=== PATIENT | female | born 1950 | race Caucasian/White ===

== ENCOUNTER 2016-07-12 00:17 | Inpatient (IN) | payer OTHER ==
--- NOTE | ~2016-07-12 | HP ---
History And Physical [facility] [address] [place]. [address] NAME: BRIDGET NICHOLAS : 50 STATUS : ADM IN PAT#: [id number] AGE: 66 ADM/REG DATE : 07/12/16 MR#: [id number] REPORT SERV DATE: 07/12/16 DICTATED BY: MORALES SAWYER DATE: 07/12/16 REPORT STATUS : Draft TRANSCRIBED BY: MODL DATE: 07/12/16 DATE OF ADMISSION: 07/12/2016 ADMISSION DIAGNOSIS: Myocardial infarction. HISTORY OF PRESENT ILLNESS: Ms Nicholas is a 66-year-old female, who presented to [facility] ED early this morning via EMS with a presumptive diagnosis of inferior SD. She has a medical history notable for known coronary heart disease with prior CABG in the s, one vessel, followed by stenting of her RCA. She does not have regular followup with a maintenance worker municipal, but previously was cared for by Dr. Larios. She states that she was having back pain for the past three weeks intermittent that became more severe and prolonged today. She actually saw a primary care physician today and was referred to our group for an appointment in the near future, but due to progressive pain, she called EMS and an EKG in the field was consistent with evolving inferior SD. Code STEMI was activated and I discussed the case with the emergency room physician who reviewed the EKG and confirmed findings consistent with inferior wall SD. The patient was therefore brought to the lab coordinator emergently where I met her briefly and evaluated her. She was having ongoing severe 10/10 chest pain and we decided to proceed with cardiac catheterization. The details are dictated separately, but in short demonstrated an occluded proximal RCA that was successfully revascularized with a single stent. PAST MEDICAL HISTORY: 1. Coronary heart disease with prior one-vessel CABG, details unknown, but presumably with GILMORE to LAD and subsequent occlusion of this graft and previous stenting to her RCA, details are also not available. The patient was admitted in 2010 with acute SD, but did not undergo revascularization at that time. 2. Hypertension. 3. Tobacco abuse. Longstanding and ongoing. 4. Dyslipidemia. 5. Sleep apnea. SURGICAL HISTORY: Cholecystectomy and bypass surgery. MEDICATIONS: Home med list not currently available. ALLERGIES: DENIES. FAMILY HISTORY: Noncontributory. SOCIAL HISTORY: The patient is a . She lives with one of her daughters. She is not working. She smokes cigarettes, but denies alcohol or illicits. REVIEW OF SYSTEMS: Per HPI. Otherwise, negative. History And Physical [address] [address] NAME: BRIDGET NICHOLAS : 50 STATUS : ADM IN PAT#: [id number] AGE: 66 ADM/REG DATE : 07/12/16 MR#: [id number] REPORT SERV DATE: 07/12/16 DICTATED BY: MORALES SAWYER DATE: 07/12/16 REPORT STATUS : Draft TRANSCRIBED BY: JF DATE: 07/12/16 PHYSICAL EXAMINATION: Upon arrival to the lab coordinator. VITAL SIGNS: Heart rate approximately 80, blood pressure 140/90, respiratory rate 22. GENERAL: Normocephalic, well-developed male, in moderate distress. Speech is labored. HEENT: Sclerae anicteric. Mucous membranes are moist. NECK: Supple. CARDIOVASCULAR: Normal S1, S2. No murmurs are present. PULMONARY: Clear to auscultation bilaterally. ABDOMEN: Soft, nondistended, nontender. EXTREMITIES: Warm. No edema. LABORATORY DATA: Pending at the time of dictation. EKG demonstrates sinus bradycardia with ST elevations in inferior leads ranging from 6 [address] depression across precordial leads. There are also ST elevations laterally. Cardiac cath dictated separately and summarized in HPI. IMPRESSION/RECOMMENDATIONS: 1. Acute inferior ST-elevation myocardial infarction, status post prior percutaneous coronary intervention to the right coronary artery. 2. Left ventricular dysfunction, ejection fraction estimated at 40% by left ventriculogram. 3. Tobacco abuse. 4. History of hypertension. The patient be admitted to CCU. She will be started on aspirin and Brilinta as well as a high-intensity statin. We will treat her with an MANUELA inhibitor and beta yaz as her blood pressure tolerates. We will further evaluate her left ventricular function with an echocardiogram. We will address risk factor modification with focus on smoking cessation. LAURE/JF Morales Sawyer MD / [id number] CC: Morales Sawyer MD
--- NOTE | ~2016-07-12 | EHP ---
ER [address] and [address] [facility] [address] NAME: BRIDGET NORTH : 50 STATUS : DIS IN PAT#: [id number] AGE: 66 ADM/REG DATE : 07/12/16 MR#: [id number] REPORT SERV DATE: 07/19/16 DICTATED BY: FRANCY MYLES DATE: 07/19/16 REPORT STATUS : Draft TRANSCRIBED BY: MODL DATE: 07/19/16 ADDENDUM: CHIEF COMPLAINT: Chest pain. EKG read by me, showed an ST elevation IN inferiorly with reciprocal changes. DIAGNOSIS: ST elevation myocardial infarction. CONDITION: Fair. I did discuss this with Cardiology and reviewed the patient's labs, diagnosis. CMR/MODL Francy Myles M.D. / [id number] CC: MD Merlyn Hernandez DO
[~2016-07-12 00:17] MED LIST: ASAB PO; CHANTIX1 PO; NITROBID2 PO; NTG150 SL; ZANTAC 150 PO; ZIAC10 PO; ZOCOR40 PO
[2016-07-12] MEDS ORDERED: NORV5 PO (00:28)
[2016-07-12] MEDS ORDERED: [UNRECOGNIZED DRUG - REMARK] PO (00:29)
[2016-07-12] MEDS ORDERED: ZOCOR40 PO ×2 (00:35→05:44)
[2016-07-12] MEDS ORDERED: NITRO-TIME2.5 MG PO (00:36)
[2016-07-12] MEDS ORDERED: BEN25 PO (00:37)
[2016-07-12] MEDS ORDERED: [UNRECOGNIZED DRUG - REMARK] PO (00:37)
[2016-07-12] MEDS ORDERED: *UNABLE1 (00:38)
[2016-07-12 00:46] LABS: BASOPHILS 0.6 %; BASOPHILS ABSOLUTE 0.04 10/3/uL (0.0-0.16); EOSINOPHILS 3.2 %; EOSINOPHILS ABSOLUTE 0.22 10/3/uL (0.0-0.53); HEMOGLOBIN 14.6 g/dL (12.0-16.0); IMMATURE GRANULOCYTES 0.3 %; IMMATURE GRANULOCYTES ABSOLUTE 0.02 10/3/uL (0.0-0.11); LYMPHOCYTES ABSOLUTE 2.99 10/3/uL (0.67-4.30); MEAN CORPUS HGB CONC 35.8 g/dL (32.0-36.0); MEAN CORPUSCULAR HEMOGLOB 32.7 pg (26.0-34.0); MEAN CORPUSCULAR VOLUME 91.5 fL (80-100); MEAN PLATELET VOLUME 10.1 fL (9.2-13.0); MONOCYTES 4.3 %; MONOCYTES ABSOLUTE 0.29 10/3/uL (0.21-1.20); NEUTROPHILS 47.6 %; NEUTROPHILS ABSOLUTE 3.23 10/3/uL (2.02-8.40); PLATELET COUNT 250 10/3/uL (150-400); RBC DISTRIBUTION WIDTH 12.9 % (12.0-16.0); RED CELL COUNT 4.46 10/6/uL (4.0-5.6); WHITE BLOOD CELLS 6.8 10/3/uL (4.5-10.5)
[2016-07-12 00:47] LABS: HEMATOCRIT 40.8 % (36.0-48.0); MANUAL DIFF NO %
[2016-07-12 00:55] LABS: BUN (BLOOD UREA NITROGEN) 12 MG/DL (6-23); CALCIUM, SERUM 8.2 MG/DL (8.5-10.4); CHEST PAIN PROFILE TAT 0 Hrs 22 Mins; CHLORIDE, SERUM 108 MMOL/L (96-112); CO2 (CARBON DIOXIDE) 30 MMOL/L (24-34); CREATININE 0.94 MG/DL (0.55-1.02); GFR AFRICAN AMERICAN 73 ML/MIN (>=60); GFR NON AFRICAN AMERICAN 63 ML/MIN (>=60); GLUCOSE, SERUM 117 MG/DL (60-99); POTASSIUM, SERUM 3.1 MMOL/L (3.5-5.3); SODIUM, SERUM 144 MMOL/L (135-148); TROPONIN I 0.04 NG/ML (<0.05)
[2016-07-12 01:03] LABS: PARTIAL THROMBO TIME 25.7 SEC (22.5-37.2)
[2016-07-12 01:07] LABS: INTERNATIONAL NORMAL RATI 1.1 UNITS (-); PROTIME (NOT ORD) 13.8 SEC (12.0-14.5)
[2016-07-12 04:35] LABS: BASOPHILS 0.3 %; BASOPHILS ABSOLUTE 0.03 10/3/uL (0.0-0.16); EOSINOPHILS 0.6 %; EOSINOPHILS ABSOLUTE 0.05 10/3/uL (0.0-0.53); HEMATOCRIT 38.5 % (36.0-48.0); HEMOGLOBIN 13.7 g/dL (12.0-16.0); IMMATURE GRANULOCYTES 0.2 %; IMMATURE GRANULOCYTES ABSOLUTE 0.02 10/3/uL (0.0-0.11); LYMPHOCYTES ABSOLUTE 1.56 10/3/uL (0.67-4.30); MEAN CORPUS HGB CONC 35.6 g/dL (32.0-36.0); MEAN CORPUSCULAR HEMOGLOB 32.6 pg (26.0-34.0); MEAN CORPUSCULAR VOLUME 91.7 fL (80-100); MEAN PLATELET VOLUME 10.2 fL (9.2-13.0); MONOCYTES 6.1 %; MONOCYTES ABSOLUTE 0.53 10/3/uL (0.21-1.20); NEUTROPHILS 74.8 %; NEUTROPHILS ABSOLUTE 6.46 10/3/uL (2.02-8.40); PLATELET COUNT 211 10/3/uL (150-400); WHITE BLOOD CELLS 8.7 10/3/uL (4.5-10.5)
[2016-07-12 04:39] LABS: MANUAL DIFF NO %
[2016-07-12 04:48] LABS: BUN (BLOOD UREA NITROGEN) 10 MG/DL (6-23); CALCIUM, SERUM 8.3 MG/DL (8.5-10.4); CHLORIDE, SERUM 109 MMOL/L (96-112); CREATININE 0.84 MG/DL (0.55-1.02); GFR AFRICAN AMERICAN 84 ML/MIN (>=60); GFR NON AFRICAN AMERICAN 72 ML/MIN (>=60); GLUCOSE, SERUM 121 MG/DL (60-99); PHOSPHORUS, SERUM 2.7 MG/DL (2.5-4.5); POTASSIUM, SERUM 3.5 MMOL/L (3.5-5.3); SODIUM, SERUM 145 MMOL/L (135-148)
[2016-07-12 04:49] LABS: CO2 (CARBON DIOXIDE) 25 MMOL/L (24-34)
[2016-07-12] MEDS ORDERED: ZIAC10 PO (05:42)
[2016-07-12 11:03] LABS: CKMB INDEX (NOT ORD) 8.3
[2016-07-12 12:36] LABS: POTASSIUM, SERUM 3.9 MMOL/L (3.5-5.3)
[2016-07-12 19:20] LABS: CK-MB 102.5 NG/ML
[2016-07-12 19:21] LABS: CKMB INDEX (NOT ORD) 6.6
[2016-07-13 02:25] LABS: BASOPHILS 0.4 %; BASOPHILS ABSOLUTE 0.03 10/3/uL (0.0-0.16); EOSINOPHILS 1.9 %; EOSINOPHILS ABSOLUTE 0.14 10/3/uL (0.0-0.53); HEMATOCRIT 38.2 % (36.0-48.0); HEMOGLOBIN 13.3 g/dL (12.0-16.0); IMMATURE GRANULOCYTES 0.1 %; IMMATURE GRANULOCYTES ABSOLUTE 0.01 10/3/uL (0.0-0.11); LYMPHOCYTES 30.7 %; LYMPHOCYTES ABSOLUTE 2.21 10/3/uL (0.67-4.30); MANUAL DIFF NO %; MEAN CORPUS HGB CONC 34.8 g/dL (32.0-36.0); MEAN CORPUSCULAR HEMOGLOB 32.6 pg (26.0-34.0); MEAN CORPUSCULAR VOLUME 93.6 fL (80-100); MEAN PLATELET VOLUME 10.1 fL (9.2-13.0); MONOCYTES 6.7 %; MONOCYTES ABSOLUTE 0.48 10/3/uL (0.21-1.20); NEUTROPHILS 60.2 %; NEUTROPHILS ABSOLUTE 4.33 10/3/uL (2.02-8.40); PLATELET COUNT 185 10/3/uL (150-400); RBC DISTRIBUTION WIDTH 12.9 % (12.0-16.0); RED CELL COUNT 4.08 10/6/uL (4.0-5.6); WHITE BLOOD CELLS 7.2 10/3/uL (4.5-10.5)
[2016-07-13 02:47] LABS: BUN (BLOOD UREA NITROGEN) 10 MG/DL (6-23); CALCIUM, SERUM 8.5 MG/DL (8.5-10.4); CHLORIDE, SERUM 109 MMOL/L (96-112); CK-MB 50.2 NG/ML; CO2 (CARBON DIOXIDE) 25 MMOL/L (24-34); CREATININE 0.78 MG/DL (0.55-1.02); GFR AFRICAN AMERICAN 92 ML/MIN (>=60); GFR NON AFRICAN AMERICAN 79 ML/MIN (>=60); GLUCOSE, SERUM 100 MG/DL (60-99); POTASSIUM, SERUM 3.7 MMOL/L (3.5-5.3); SODIUM, SERUM 143 MMOL/L (135-148)
[2016-07-13 02:48] LABS: CKMB INDEX (NOT ORD) 5.1; CPK 991 U/L (0-200)
[2016-07-14] MEDS ORDERED: ASAB PO (11:05)
[2016-07-14] MEDS ORDERED: LIPITOR40 PO (11:05)
[2016-07-14] MEDS ORDERED: PRIN5 PO (11:06)
[2016-07-14] MEDS ORDERED: BRILINTA90 MG PO (11:06)
[2016-07-14] MEDS ORDERED: NITROSTAT0.4 MG SL (11:09)
== END 2016-07-14 13:39 | disposition home or self-care (01) | DRG 247 ==
LOC: ER 00:17 → SSU2 00:19 → CCU 01:56 → 2SO 07-13 12:28
PROVIDERS: Internal Medicine Cardiovascular Disease; Specialist
PROC: 027034Z Dilation of Coronary Artery, One Artery with Drug-eluting Intraluminal Device, Percutaneous Approach (ICD-10-PCS; principal; 2016-07-12)
PROC: 4A023N7 Measurement of Cardiac Sampling and Pressure, Left Heart, Percutaneous Approach (ICD-10-PCS; 2016-07-12)
PROC: B2151ZZ Fluoroscopy of Left Heart using Low Osmolar Contrast (ICD-10-PCS; 2016-07-12)
PROC: B2111ZZ Fluoroscopy of Multiple Coronary Arteries using Low Osmolar Contrast (ICD-10-PCS; 2016-07-12)
DX: I21.19 ST elevation (STEMI) myocardial infarction involving other coronary artery of inferior wall (principal); I10 Essential (primary) hypertension; F17.210 Nicotine dependence, cigarettes, uncomplicated; I25.10 Atherosclerotic heart disease of native coronary artery without angina pectoris; E78.5 Hyperlipidemia, unspecified; G47.33 Obstructive sleep apnea (adult) (pediatric); I34.0 Nonrheumatic mitral (valve) insufficiency; E78.00 Pure hypercholesterolemia, unspecified; Z95.1 Presence of aortocoronary bypass graft; Z98.890 Other specified postprocedural states
CPT/HCPCS: 80048; 82550; 82553; 83735; 84100; 84132; 84484; 85025; 85610; 85730; 87641; 93005; 93458; 99152; 99153; 99285; A9270-GY; C1713; C1725; C1760; C1769; C1874; C1887; C8929; C9606; J0583; J2250; J2405; J3010; Q9957; Q9967

== ENCOUNTER 2016-07-27 16:12 | Emergency (ER) | payer OTHER ==
[2016-07-27 15:04] LABS: BASOPHILS 0.6 %; BASOPHILS ABSOLUTE 0.04 10/3/uL (0.0-0.16); EOSINOPHILS ABSOLUTE 0.13 10/3/uL (0.0-0.53); ER CBC TAT 0 Hrs 03 Mins; HEMOGLOBIN 14.4 g/dL (12.0-16.0); IMMATURE GRANULOCYTES 0.2 %; IMMATURE GRANULOCYTES ABSOLUTE 0.01 10/3/uL (0.0-0.11); LYMPHOCYTES 35.8 %; LYMPHOCYTES ABSOLUTE 2.29 10/3/uL (0.67-4.30); MANUAL DIFF NO %; MEAN CORPUSCULAR HEMOGLOB 32.3 pg (26.0-34.0); MEAN CORPUSCULAR VOLUME 89.7 fL (80-100); MEAN PLATELET VOLUME 9.5 fL (9.2-13.0); MONOCYTES 5.6 %; MONOCYTES ABSOLUTE 0.36 10/3/uL (0.21-1.20); NEUTROPHILS 55.8 %; NEUTROPHILS ABSOLUTE 3.57 10/3/uL (2.02-8.40); PLATELET COUNT 270 10/3/uL (150-400); RBC DISTRIBUTION WIDTH 12.5 % (12.0-16.0); RED CELL COUNT 4.46 10/6/uL (4.0-5.6); WHITE BLOOD CELLS 6.4 10/3/uL (4.5-10.5)
[2016-07-27 15:12] LABS: INTERNATIONAL NORMAL RATI 1.1 UNITS (-); PARTIAL THROMBO TIME 26.7 SEC (22.5-37.2)
[2016-07-27 15:22] LABS: BUN (BLOOD UREA NITROGEN) 10 MG/DL (6-23); CALCIUM, SERUM 9.1 MG/DL (8.5-10.4); CHLORIDE, SERUM 109 MMOL/L (96-112); CREATININE 0.93 MG/DL (0.55-1.02); GFR AFRICAN AMERICAN 74 ML/MIN (>=60); GFR NON AFRICAN AMERICAN 64 ML/MIN (>=60); GLUCOSE, SERUM 99 MG/DL (60-99); POTASSIUM, SERUM 3.8 MMOL/L (3.5-5.3); SODIUM, SERUM 143 MMOL/L (135-148)
[2016-07-27 15:23] LABS: CK-MB 3.4 NG/ML; CO2 (CARBON DIOXIDE) 30 MMOL/L (24-34); CPK 94 U/L (0-200)
[2016-07-27 15:25] LABS: CHEST PAIN PROFILE TAT 0 Hrs 24 Mins; TROPONIN I 0.11 NG/ML (<0.05)
[~2016-07-27 16:12] MED LIST changes: +*UNABLE1; +BEN25 PO; +BRILINTA90 MG PO; +LIPITOR40 PO; +NITRO-TIME2.5 MG PO; +NITROSTAT0.4 MG SL; +NORV5 PO; +PRIN5 PO; +[UNRECOGNIZED DRUG - REMARK] PO; +[UNRECOGNIZED DRUG - REMARK] PO
== END 2016-07-27 18:09 | disposition home or self-care (01) ==
LOC: ER 16:12
PROVIDERS: Emergency Medicine
DX: R07.89 Other chest pain (principal); I25.2 Old myocardial infarction; I10 Essential (primary) hypertension; Z95.1 Presence of aortocoronary bypass graft; Z98.61 Coronary angioplasty status; Z79.82 Long term (current) use of aspirin; Z79.899 Other long term (current) drug therapy
CPT/HCPCS: 71010; 80048; 82550; 82553; 83690; 83735; 84484; 85025; 85610; 85730; 93005; 99285; A9270-GY